=== PATIENT | female | born 1980 | race African-American/Black ===

== ENCOUNTER 2024-04-01 13:13 | Emergency (ER) | payer SELFPAY ==
[~2024-04-01] VITALS: Ht 175.3 cm; Wt 130.0 kg
[2024-04-01 13:18] VITALS: O2SAT 98
[2024-04-01] MEDS ORDERED: METH-653 MT (14:02)
[2024-04-01] MEDS ORDERED: IBUP-2029 MT (14:02)
[2024-04-01 14:45] VITALS: BP 156/63; PULSE 75; RESP 16; TEMP 98.5
== END 2024-04-01 14:46 | disposition home or self-care (01) ==
LOC: ER 13:13
DX: S43.401A Unspecified sprain of right shoulder joint, initial encounter (principal); J45.909 Unspecified asthma, uncomplicated; X58.XXXA Exposure to other specified factors, initial encounter; Y93.89 Activity, other specified; Y92.89 Other specified places as the place of occurrence of the external cause; Y99.8 Other external cause status
CPT/HCPCS: 99283

== ENCOUNTER 2024-11-02 13:19 | Emergency (ER) | payer OTHER ==
[~2024-11-02] VITALS: Ht 175.3 cm; Wt 131.0 kg
[~2024-11-02 13:19] MED LIST: IBUP-2029 MT; METH-653 MT
[2024-11-02 13:28] VITALS: O2SAT 99
[2024-11-02 15:13] LABS: BASOPHILS % 0.2 % (0.0-2.0); CHLORIDE 106 mEq/L (98-107); EOSINOPHILS % 0.6 % (0.0-5.0); HEMATOCRIT. 41.1 % (36.0-48.0); HEMOGLOBIN. 13.6 g/dL (12.0-16.0); LYMPHOCYTES % 18.3 % (20.0-50.0); MEAN CORPUSCULAR HEMOGLOBIN 30.3 pg (28.0-32.0); MEAN CORPUSCULAR HGB CONC 33.1 g/dL (31.0-37.0); MEAN CORPUSCULAR VOLUME 91.7 fL (81.0-99.0); MEAN PLATELET VOLUME 9.3 fl (7.4-10.4); MONOCYTES % 3.6 % (2.0-8.0); NEUTROPHILS % 77.3 % (40.0-76.0); PLATELET 305 x1000/uL (130-400); POTASSIUM 3.8 mEq/L (3.5-5.1); RED BLOOD CELL COUNT 4.49 mill/uL (4.2-5.4); RED CELL DISTRIBUTION WIDTH 13.2 % (11.6-14.6); SODIUM 139 mEq/L (136-145); WHITE BLOOD COUNT 12.2 x1000/uL (4.5-11.0)
[2024-11-02 15:14] LABS: CALCIUM 9.8 mg/dL (8.7-10.4); CARBON DIOXIDE 26 mEq/L (21-32)
[2024-11-02 15:19] LABS: GLUCOSE 97 mg/dL (70-105); UREA NITROGEN BLOOD 10 mg/dL (9-23)
[2024-11-02 17:34] LABS: CLARITY URINE CLEAR (CLEAR); COLOR URINE YELLOW (YELLOW); GLUCOSE URINE NEGATIVE (NEGATIVE); KETONES URINE NEGATIVE (NEGATIVE); LEUKOCYTE ESTERASE URINE NEGATIVE (NEGATIVE); NITRITE URINE NEGATIVE (NEGATIVE); OCCULT BLOOD URINE 2+ (NEGATIVE); PH URINE 6.5 (4.5-8.0); PROTEIN URINE NEGATIVE (NEGATIVE); SPECIFIC GRAVITY URINE 1.016 (1.005-1.030); UROBILINOGEN URINE 0.2 E.U./dL (0.2-1.0)
[2024-11-02] MEDS ORDERED: IBUPROFEN 600MG TABLET PO ONE (17:45)
[2024-11-02 17:47] LABS: HCG SCREEN NEGATIVE
[2024-11-02 19:02] LABS: BACTERIA URINE TRACE; SQUAMOUS EPITHELIAL CELL URINE FEW /lpf (RARE/1+); WBC URINE 0-2 /hpf (0-2)
[2024-11-02] MEDS: IBUPROFEN 600MG TABLET PO NR (20:06)
[2024-11-02 20:09] VITALS: BP 159/82; PULSE 94; RESP 18; TEMP 37.3; O2SAT 99
== END 2024-11-02 20:11 | disposition home or self-care (01) ==
LOC: ER 13:19
DX: N93.9 Abnormal uterine and vaginal bleeding, unspecified (principal); J45.909 Unspecified asthma, uncomplicated; Z88.1 Allergy status to other antibiotic agents
CPT/HCPCS: 36415; 76830; 76856; 80048; 81003; 81025; 84703; 85025; 86850; 86900; 99284